=== PATIENT | male | born 1955 | race Caucasian/White ===

== ENCOUNTER 2017-07-01 08:22 | Outpatient (CLI) | payer OTHER ==
[2017-07-01 08:44] LABS: APPEARANCE,URINE Clear (CLEAR); COLOR,URINE Yellow (YELLOW); OCCULT BLOOD,URINE Negative (NEGATIVE); PH URINE 6.5 (5.0 - 8.0); UROBILINOGEN URINE 0.2 Eu (0.2-1.0)
[2017-07-01 08:44] LABS: BASOPHILS % 1.7 (0.0-1.5); EOSINOPHILS % 1.9 % (0.0-6.8); MEAN CORPUSCULAR HEMOGLOBIN 29.6 pg (28.0-34.0); MEAN CORPUSCULAR VOLUME 86.8 fl (80.0-100.0); NEUTROPHILS # 5.7 # k/uL (1.4-7.7)
[2017-07-01 09:27] LABS: eGFR (African) > 60; eGFR (Non-African) > 60
== END 2017-07-01 08:30 ==
LOC: LAB 08:22
PROVIDERS: ATTEND Family Medicine
DX: N40.0 Benign prostatic hyperplasia without lower urinary tract symptoms (principal); E78.5 Hyperlipidemia, unspecified; R10.31 Right lower quadrant pain; R39.198 Other difficulties with micturition; I10 Essential (primary) hypertension
CPT/HCPCS: 36415; 80053; 80061; 81002; 84153; 85025